=== PATIENT | female | born 1945 | race Caucasian/White ===

== ENCOUNTER 2022-07-17 14:14 | Inpatient (IN) ==
[2022-07-18] MEDS ORDERED: methocarbamoL 750 MG TABLET PO SCH (16:00)
[2022-07-18] MEDS: cephALEXin 500 MG CAPSULE PO SCH ×2 (16:09→21:31)
[2022-07-18] MEDS: *HR* OxyCODONE Immed Rel 5 MG TABLET PO PRN (16:09)
[2022-07-18] MEDS: *HR* OxyCODONE ER (12 HR) 10 MG TABLET PO SCH (21:31)
[2022-07-18] MEDS: Doxycycline 100 MG CAPSULE PO SCH (21:32)
[2022-07-18] MEDS: Gabapentin 300 MG CAPSULE PO SCH (21:33)
[2022-07-18] MEDS: Lactobacillus 1 EACH CAP.SPRINK PO SCH (21:35)
[2022-07-18] MEDS: methocarbamoL 750 MG TABLET PO SCH (21:38)
[2022-07-18] MEDS: Budesonide/Formoterol 160/4.5 1 PUFF INH IH SCH (22:02)
[2022-07-19 05:24] LABS: Basophils # 0.1 K/mcL (0.0-0.2); Basophils % 1.2 %; Eosinophils # 0.2 K/mcL (0.0-0.6); Eosinophils % 2.4 %; Hematocrit 31.9 % (35.3-44.9); Hemoglobin 9.8 g/dL (11.5-15.4); Immature Granulocytes % 2.2 % (0-4); Lymphocytes # 1.3 K/mcL (0.6-4.6); Lymphocytes % 15.1 %; Mean Corpuscular HGB Conc 30.7 g/dL (31.6-35.5); Mean Corpuscular Volume 87.9 fL (83.0-100.0); Mean Platelet Volume 9.3 fL (9.4-12.4); Monocytes # 0.7 K/mcL (0.0-1.3); Monocytes % 7.8 %; Neutrophils # 5.9 K/mcL (1.6-8.9); Platelet Count 267 K/mcL (140-400); Red Blood Count 3.63 M/mcL (3.82-4.97); Red Cell Distribution Width 15.7 % (11.5-14.5); Segmented Neutrophils % 71.3 %; White Blood Count 8.3 K/mcL (4.3-11.1)
[2022-07-19 05:39] LABS: BUN/Creatinine Ratio 30 (6-26); Blood Urea Nitrogen 18 mg/dL (8-23); Calcium 8.9 mg/dL (8.6-10.3); Carbon Dioxide 29 mEq/L (23-29); Chloride 103 mEq/L (98-107); Glucose 81 mg/dL (70-105); Magnesium 2.1 mg/dL (1.6-2.6); Osmolality,Calculated 285 (280-300); Potassium 3.6 mEq/L (3.5-5.1); Sodium 137 mEq/L (136-145)
[2022-07-19] MEDS: *HR* Enoxaparin 40 MG/0.4 ML SYRINGE SQ SCH (06:42)
[2022-07-19] MEDS: methocarbamoL 750 MG TABLET PO SCH ×3 (06:43→21:30)
[2022-07-19] MEDS: Budesonide/Formoterol 160/4.5 1 PUFF INH IH SCH ×2 (07:29→21:51)
[2022-07-19] MEDS: Lactobacillus 1 EACH CAP.SPRINK PO SCH ×2 (08:02→21:29)
[2022-07-19] MEDS: *HR* OxyCODONE Immed Rel 5 MG TABLET PO PRN ×2 (08:02→13:53)
[2022-07-19] MEDS: cephALEXin 500 MG CAPSULE PO SCH ×4 (08:03→21:30)
[2022-07-19] MEDS: Doxycycline 100 MG CAPSULE PO SCH ×2 (08:03→21:29)
[2022-07-19] MEDS: *HR* OxyCODONE ER (12 HR) 10 MG TABLET PO SCH ×2 (08:03→21:29)
[2022-07-19] MEDS: Fluticasone Propionate Nasal 50 MCG/SPRAY BOTTLE NS SCH (08:09)
[2022-07-19] MEDS: Multivit/Ca/Min/Fe/FA 1 TAB TABLET PO SCH (08:09)
[2022-07-19] MEDS: Cholecalciferol (D-3) 1,000 UNIT (25MCG) TABLET PO SCH (08:09)
[2022-07-19] MEDS: predniSONE 5 MG TABLET PO SCH (08:09)
[2022-07-19] MEDS: Gabapentin 300 MG CAPSULE PO SCH (21:29)
[2022-07-20] MEDS: *HR* OxyCODONE Immed Rel 5 MG TABLET PO PRN ×3 (05:26→18:29)
[2022-07-20] MEDS: *HR* Enoxaparin 40 MG/0.4 ML SYRINGE SQ SCH (05:27)
[2022-07-20] MEDS: methocarbamoL 750 MG TABLET PO SCH ×3 (05:27→21:11)
[2022-07-20] MEDS: Budesonide/Formoterol 160/4.5 1 PUFF INH IH SCH ×2 (10:07→21:45)
[2022-07-20] MEDS: predniSONE 5 MG TABLET PO SCH (10:09)
[2022-07-20] MEDS: cephALEXin 500 MG CAPSULE PO SCH ×4 (10:09→21:11)
[2022-07-20] MEDS: Multivit/Ca/Min/Fe/FA 1 TAB TABLET PO SCH (10:09)
[2022-07-20] MEDS: Lactobacillus 1 EACH CAP.SPRINK PO SCH ×2 (10:09→21:11)
[2022-07-20] MEDS: Cholecalciferol (D-3) 1,000 UNIT (25MCG) TABLET PO SCH (10:09)
[2022-07-20] MEDS: Doxycycline 100 MG CAPSULE PO SCH ×2 (10:09→21:10)
[2022-07-20] MEDS: *HR* OxyCODONE ER (12 HR) 10 MG TABLET PO SCH ×2 (10:09→21:11)
[2022-07-20] MEDS: Fluticasone Propionate Nasal 50 MCG/SPRAY BOTTLE NS SCH (10:11)
[2022-07-20] MEDS ORDERED: Fluticasone Propionate Nasal 50 MCG/SPRAY BOTTLE NS PRN (10:18)
[2022-07-20] MEDS: Gabapentin 300 MG CAPSULE PO SCH (21:11)
[2022-07-21] MEDS: *HR* OxyCODONE Immed Rel 5 MG TABLET PO PRN ×2 (04:33→12:08)
[2022-07-21] MEDS: methocarbamoL 750 MG TABLET PO SCH ×3 (05:24→23:13)
[2022-07-21] MEDS: *HR* Enoxaparin 40 MG/0.4 ML SYRINGE SQ SCH (05:24)
[2022-07-21] MEDS: Doxycycline 100 MG CAPSULE PO SCH ×2 (09:09→20:16)
[2022-07-21] MEDS: *HR* OxyCODONE ER (12 HR) 10 MG TABLET PO SCH ×2 (09:09→20:16)
[2022-07-21] MEDS: Cholecalciferol (D-3) 1,000 UNIT (25MCG) TABLET PO SCH (09:10)
[2022-07-21] MEDS: predniSONE 5 MG TABLET PO SCH (09:10)
[2022-07-21] MEDS: Multivit/Ca/Min/Fe/FA 1 TAB TABLET PO SCH (09:10)
[2022-07-21] MEDS: cephALEXin 500 MG CAPSULE PO SCH ×3 (09:10→17:28)
[2022-07-21] MEDS: Lactobacillus 1 EACH CAP.SPRINK PO SCH ×2 (09:10→20:17)
[2022-07-21] MEDS: Budesonide/Formoterol 160/4.5 1 PUFF INH IH SCH ×2 (10:06→21:56)
[2022-07-21] MEDS: Gabapentin 300 MG CAPSULE PO SCH (20:15)
[2022-07-22 05:00] LABS: Basophils # 0.1 K/mcL (0.0-0.2); Eosinophils # 0.2 K/mcL (0.0-0.6); Eosinophils % 3.5 %; Hematocrit 31.4 % (35.3-44.9); Hemoglobin 9.7 g/dL (11.5-15.4); Lymphocytes # 1.2 K/mcL (0.6-4.6); Lymphocytes % 17.9 %; Mean Corpuscular HGB Conc 30.9 g/dL (31.6-35.5); Mean Corpuscular Hemoglobin 27.2 pg (28.0-33.3); Mean Corpuscular Volume 88.2 fL (83.0-100.0); Mean Platelet Volume 9.3 fL (9.4-12.4); Monocytes # 0.6 K/mcL (0.0-1.3); Monocytes % 8.2 %; Neutrophils # 4.7 K/mcL (1.6-8.9); Platelet Count 263 K/mcL (140-400); Red Blood Count 3.56 M/mcL (3.82-4.97); Red Cell Distribution Width 16.2 % (11.5-14.5); Segmented Neutrophils % 68.4 %; White Blood Count 6.8 K/mcL (4.3-11.1)
[2022-07-22] MEDS: methocarbamoL 750 MG TABLET PO SCH ×3 (05:08→22:15)
[2022-07-22] MEDS: *HR* Enoxaparin 40 MG/0.4 ML SYRINGE SQ SCH (05:09)
[2022-07-22 05:13] LABS: BUN/Creatinine Ratio 27 (6-26); Blood Urea Nitrogen 16 mg/dL (8-23); Calcium 8.6 mg/dL (8.6-10.3); Carbon Dioxide 29 mEq/L (23-29); Chloride 102 mEq/L (98-107); Glucose 87 mg/dL (70-105); Osmolality,Calculated 281 (280-300); Potassium 3.4 mEq/L (3.5-5.1); Sodium 135 mEq/L (136-145)
[2022-07-22] MEDS: *HR* OxyCODONE ER (12 HR) 10 MG TABLET PO SCH ×2 (08:13→20:17)
[2022-07-22] MEDS: *HR* OxyCODONE Immed Rel 5 MG TABLET PO PRN ×3 (08:13→22:18)
[2022-07-22] MEDS: Doxycycline 100 MG CAPSULE PO SCH ×2 (08:13→20:17)
[2022-07-22] MEDS: predniSONE 5 MG TABLET PO SCH (08:14)
[2022-07-22] MEDS: Cholecalciferol (D-3) 1,000 UNIT (25MCG) TABLET PO SCH (08:14)
[2022-07-22] MEDS: Multivit/Ca/Min/Fe/FA 1 TAB TABLET PO SCH (08:14)
[2022-07-22] MEDS: Lactobacillus 1 EACH CAP.SPRINK PO SCH ×2 (08:14→20:16)
[2022-07-22] MEDS: Budesonide/Formoterol 160/4.5 1 PUFF INH IH SCH ×2 (10:04→20:08)
[2022-07-22] MEDS ORDERED: Methyl Salicylate/Menthol 85 APPL/85 GM TUBE TP PRN (11:19)
[2022-07-22 20:10] VITALS: RESP 16
[2022-07-22] MEDS: Gabapentin 300 MG CAPSULE PO SCH (20:16)
[2022-07-23] MEDS: methocarbamoL 750 MG TABLET PO SCH ×3 (04:54→23:47)
[2022-07-23] MEDS: *HR* OxyCODONE Immed Rel 5 MG TABLET PO PRN ×3 (04:54→23:48)
[2022-07-23] MEDS: *HR* Enoxaparin 40 MG/0.4 ML SYRINGE SQ SCH (04:55)
[2022-07-23] MEDS: Lactobacillus 1 EACH CAP.SPRINK PO SCH ×2 (07:45→20:45)
[2022-07-23] MEDS: Multivit/Ca/Min/Fe/FA 1 TAB TABLET PO SCH (07:45)
[2022-07-23] MEDS: Doxycycline 100 MG CAPSULE PO SCH ×2 (07:45→20:45)
[2022-07-23] MEDS: *HR* OxyCODONE ER (12 HR) 10 MG TABLET PO SCH ×2 (07:45→20:44)
[2022-07-23] MEDS: Cholecalciferol (D-3) 1,000 UNIT (25MCG) TABLET PO SCH (07:45)
[2022-07-23] MEDS: predniSONE 5 MG TABLET PO SCH (07:46)
[2022-07-23] MEDS: Budesonide/Formoterol 160/4.5 1 PUFF INH IH SCH ×2 (10:25→21:42)
[2022-07-23] MEDS: Gabapentin 300 MG CAPSULE PO SCH (20:45)
[2022-07-24] MEDS: *HR* Enoxaparin 40 MG/0.4 ML SYRINGE SQ SCH (05:31)
[2022-07-24] MEDS: *HR* OxyCODONE Immed Rel 5 MG TABLET PO PRN (05:33)
[2022-07-24] MEDS: methocarbamoL 750 MG TABLET PO SCH ×2 (05:33→13:00)
[2022-07-24] MEDS: Budesonide/Formoterol 160/4.5 1 PUFF INH IH SCH (07:31)
[2022-07-24 07:34] VITALS: BP 117/61; PULSE 80; TEMP 98; O2SAT 92
[2022-07-24] MEDS: Cholecalciferol (D-3) 1,000 UNIT (25MCG) TABLET PO SCH (07:54)
[2022-07-24] MEDS: *HR* OxyCODONE ER (12 HR) 10 MG TABLET PO SCH (07:54)
[2022-07-24] MEDS: Lactobacillus 1 EACH CAP.SPRINK PO SCH (07:54)
[2022-07-24] MEDS: Doxycycline 100 MG CAPSULE PO SCH (07:54)
[2022-07-24] MEDS: Multivit/Ca/Min/Fe/FA 1 TAB TABLET PO SCH (07:54)
[2022-07-24] MEDS: predniSONE 5 MG TABLET PO SCH (07:57)
== END 2022-07-24 13:02 | disposition home or self-care (01) | DRG 556 ==
LOC: INPGRE 07-18 13:26 → SUATTDRO 07-18 13:26
PROVIDERS: ADMIT Family Medicine; ATTEND Family Medicine